=== PATIENT | female | born 1980 | race Caucasian/White ===

== ENCOUNTER → 2017-05-20 | Outpatient (CLI) | payer BC ==
[~2017-05-20] MED LIST: ACHD5005 PO; DCS100C PO; HYDR-2890 PO; HYDR1TAB86 PO; IBP800T PO; LEVO500T69 PO; OSLT75C PO; PROM12.59 PO; RT-ALBUTEROL SULF 2.5 MG/3 ML PRE-MIX VIAL INH ONE
== END ==
LOC: RT 09:35
PROVIDERS: ATTEND Internal Medicine
DX: R06.2 Wheezing (principal)
CPT/HCPCS: 94060; 94726; 94729

== ENCOUNTER → 2019-06-29 | Outpatient (CLI) | payer BC ==
[~2019-06-29] MED LIST changes: -RT-ALBUTEROL SULF 2.5 MG/3 ML PRE-MIX VIAL INH ONE
--- NOTE | 2019-06-29 20:31 | Diagnostic Imaging Report ---
EXAMINATION: Cervical spine radiographs, 3 views. COMPARISON: None. HISTORY: 38-year-old female, left arm and neck pain for 2 weeks. FINDINGS: The lateral masses of C1 are normally aligned relative to C2. Additional alignment of the cervical spine is unremarkable. There is no prominent prevertebral soft tissue swelling. The cervical disc heights are well preserved. There is no identified acute fracture. IMPRESSION: 1. Unremarkable radiographic evaluation of the cervical spine. Dictated by: Dictated on workstation # [id number]
== END ==
LOC: RAD 17:16
PROVIDERS: ATTEND Chiropractor Sports Physician
DX: M54.12 Radiculopathy, cervical region (principal)
CPT/HCPCS: 72040